=== PATIENT | male | born 2000 | race Caucasian/White ===

== ENCOUNTER 2023-06-16 09:06 | Emergency (ER) | payer OTHER, MEDICAID, SELFPAY ==
[2023-06-16 09:15] VITALS: BP 153/80; PULSE 104; RESP 16; TEMP 36.9; O2SAT 97; BMI 27.3
[2023-06-16] MEDS: SODIUM CHLORIDE 0.9% 1,000 ML 1000 ML IV (09:44)
--- NOTE | 2023-06-16 09:45 | ED_ITS ---
HPI - URI/Sore Throat General Chief Complaint: Upper Respiratory Symptoms Stated Complaint: Tonsil Stones T-14, enlarged Tonsils Time Seen by Provider: 06/16/23 09:38 History of Present Illness HPI Narrative: Patient is a 23-year-old male without past medical history presenting today with ongoing sore throat. He reports that it started around May 26 he was put on 10 days of amoxicillin which he did not tolerate well secondary to diarrhea. He did not finish the whole course but did make it pretty far. He reports that the through he was doing well and then he started having throat pain again. He feels like he is passing tonsil stones. He has been on a Z-Zaid and has 1 more dose. He reports feeling increased pain on the right side. He has been able to swallow but has had significant decreased intake. He is had significant night sweats. No actual fever. Related Data Previous Rx's Medication Instructions Recorded clotrimazole-betamethasone 1 1 taniya topical QID ##15 12/05/16 %-0.05 % topical cream (Lotrisone) mupirocin calcium 2 % topical cream 2 % topical BID ##1 07/10/17 doxycycline hyclate 100 mg tablet 100 mg PO BID #14 tabs 02/17/18 triamcinolone acetonide 0.1 % 1 applictn topical BID #15 grams 07/23/18 topical cream Allergies Allergy/AdvReac Type Severity Reaction Status Date / Time Penicillins AdvReac Verified 06/16/23 09:19 Review of Systems Review of Systems ROS Unobtainable: All systems reviewed & are unremarkable except as noted in HPI and below Patient History Social History Smoking Status: Smoker, status unknown Smoking Status: Smoker, status unknown Exam Initial Vital Signs Initial Vital Signs: Vital Signs Temperature 98.5 F 06/16/23 09:15 Pulse Rate 104 H 06/16/23 09:15 Respiratory Rate 16 06/16/23 09:15 Blood Pressure 153/80 H 06/16/23 09:15 Pulse Oximetry 97 06/16/23 09:15 Oxygen Delivery Method Room Air 06/16/23 09:15 GENERAL: Alert well-appearing 23-year-old male HEENT: Head atraumatic,EOMI, pupils reactive, face symmetric, moist mucous membranes PHARYNX: Significant throat drainage of a white streak no uvula swelling or deviation no significant tonsil enlargement but tonsils are erythematous has a slightly muffled voice airway patent CARDIOVASCULAR: Regular rate and rhythm without murmurs, rubs or gallops. RESPIRATORY: Breath sounds equal bilaterally, no wheezes rales or rhonchi. ABDOMEN: Soft, nontender. Normoactive bowel sounds all 4 quadrants. No guarding or rebound. EXTREMITIES: Normal range of motion, no clubbing or edema. Neurovascularly intact NEUROLOGICAL: Alert and oriented x4. SKIN: Warm, dry, no laceration, no petechiae, no rashes or lesions. Course Orders Ordered: ED Orders 06/16/23 11:25 Blood Culture Stat Discontinued Medications Dexamethasone (Dexamethasone 10 Mg/Ml Vial) 10 mg IV NOW ONE Stop: 06/16/23 09:47 Last Admin: 06/16/23 10:26 Dose: 10 mg Documented By: ELIZABETH Sodium Chloride (Normal Saline 0.9%) 1,000 mls @ 1,000 mls/hr IV BOLUS ONE Stop: 06/16/23 10:32 Last Infusion: 06/16/23 10:46 Dose: 0 mls/hr Documented By: Admin: 06/16/23 09:44 Dose: 1,000 mls/hr Documented By: MICKY Ondansetron HCl (Ondansetron 4 Mg Odt) 4 mg PO NOW PRN PRN Reason: Nausea And Vomiting Ondansetron HCl (Ondansetron 4 Mg/2 Ml Inj) 4 mg IV NOW PRN PRN Reason: Nausea And Vomiting Vital Signs Vital signs: Vital Signs - 8 hr 06/16/23 09:15 Temperature 98.5 F Pulse Rate 104 H Respiratory Rate 16 Blood Pressure 153/80 H Pulse Oximetry 97 Oxygen Delivery Method Room Air MDM - URI/Sore Throat Lab Data 06/16/23 09:45 06/16/23 09:45 Labs: Lab Results 06/16/23 06/16/23 06/16/23 Range/Units 09:45 09:45 09:45 WBC 17.2 H (4.5-11.0) X10^3/uL RBC 4.32 L (4.5-5.9) X10^6/uL Hgb 13.4 L (13.5-17.5) g/dL Hct 38.6 L (41-53) % MCV 89.2 (80-100) fL MCH 31.0 (26-34) PG MCHC 34.8 (30-36) % RDW 13.1 (11.6-14.8) % Plt Count 224 (150-400) X10^3/uL Neut % (Auto) Not Reportable Lymph % (Auto) Not Reportable [place] % (Auto) Not Reportable Eos % (Auto) Not Reportable Baso % (Auto) Not Reportable Lymph # (Auto) Not Reportable [place] # (Auto) Not Reportable Baso # (Auto) Not Reportable Total Counted 100 Seg Neutrophils % 34.0 L (38-70) % Lymphocytes % (Manual) 45.0 (25-45) % Atypical Lymphs % 12.0 H ( - 0) % Monocytes % (Manual) 9.0 (2-11) % Neutrophils # (Manual) 5848 (1733-0892) /uL RBC Morphology Normal morphology Sodium 136 L (137-145) mmol/L Potassium 3.6 (3.4-5.1) mmol/L Chloride 102 (98-107) mmol/L Carbon Dioxide 21 L (22-32) mmol/L BUN 11 (9-20) mg/dL Creatinine 0.93 (0.66-1.25) mg/dL Estimated GFR > 60 (>60) mL/min BUN/Creatinine Ratio 11.8 (6-22) Glucose 105 H (70-100) mg/dL Calcium 8.8 (8.4-10.2) mg/dL Total Bilirubin 1.0 (0.2-1.3) mg/dL AST 73 H (17-59) IU/L ALT 67 H (<50) IU/L Alkaline Phosphatase 125 (38-126) U/L Total Protein 8.0 (6.3-8.2) g/dL Albumin 4.3 (3.5-5.0) g/dL Globulin 3.7 (1.7-4.1) g/dL Albumin/Globulin Ratio 1.2 (1.0-2.8) Lipase 81 (23-300) U/L Monoscreen (Negative) Group A Strep (PCR) Negative (Negative) 06/16/23 Range/Units 09:45 WBC (4.5-11.0) X10^3/uL RBC (4.5-5.9) X10^6/uL Hgb (13.5-17.5) g/dL Hct (41-53) % MCV (80-100) fL MCH (26-34) PG MCHC (30-36) % RDW (11.6-14.8) % Plt Count (150-400) X10^3/uL Neut % (Auto) Lymph % (Auto) [place] % (Auto) Eos % (Auto) Baso % (Auto) Lymph # (Auto) [place] # (Auto) Baso # (Auto) Total Counted Seg Neutrophils % (38-70) % Lymphocytes % (Manual) (25-45) % Atypical Lymphs % ( - 0) % Monocytes % (Manual) (2-11) % Neutrophils # (Manual) ([id number]) /uL RBC Morphology Sodium (137-145) mmol/L Potassium (3.4-5.1) mmol/L Chloride (98-107) mmol/L Carbon Dioxide (22-32) mmol/L BUN (9-20) mg/dL Creatinine (0.66-1.25) mg/dL Estimated GFR (>60) mL/min BUN/Creatinine Ratio (6-22) Glucose (70-100) mg/dL Calcium (8.4-10.2) mg/dL Total Bilirubin (0.2-1.3) mg/dL AST (17-59) IU/L ALT (<50) IU/L Alkaline Phosphatase (38-126) U/L Total Protein (6.3-8.2) g/dL Albumin (3.5-5.0) g/dL Globulin (1.7-4.1) g/dL Albumin/Globulin Ratio (1.0-2.8) Lipase (23-300) U/L Monoscreen Positive H (Negative) Group A Strep (PCR) (Negative) MDM Narrative Medical decision making narrative: Patient is a healthy 23-year-old male who presents with ongoing sore throat despite 2 rounds of antibiotics including amoxicillin and azithromycin. He does have some white exudate and gross drainage in the back of his throat mild muffled voice but no evidence of a peritonsillar abscess or retropharyngeal abscess. He is managing his own secretions. He is strep negative with a positive mono. Mom reports that they actually tested him for mono a month ago and it was negative. He was given amoxicillin he did not develop a rash. He does have leukocytosis of 17 without a left shift electrolytes do not show any clinical significant abnormalities. At this time there is no need for further antibiotics. He has no left upper quadrant pain we discussed no high-risk activities. Supportive care only at this time. He was given dexamethasone and normal saline only. Discharge Plan Departure Patient Disposition: Home Clinical Impression: Mononucleosis Instructions: DI for Mononucleosis-Adult Activity Restrictions/Additional Instructions: *You have been diagnosed with [place] *What to do: Avoid high-risk sports. This can cause seen enlargement. This will take weeks to get better. No need for any further antibiotics. Increase fluids *Continue to take medications as directed Tylenol/Motrin as needed *Follow up with your primary care provider in 2-3 days or call [phone] *Return to ER if you should have inability to tolerate fluids increasing pain or any new, worsening or concerning symptoms Prescriptions: No Action clotrimazole-betamethasone [Lotrisone] 15 GM cream 1 taniya Topical QID Qty: 15 1RF mupirocin calcium 2 % cream 2 % Topical BID Qty: 1 0RF doxycycline hyclate 100 MG tablet 100 mg PO BID Qty: 14 0RF triamcinolone acetonide 0.1 % cream 1 applictn TOP BID Qty: 15 0RF Referrals: Asa Dobbins MD [Primary Care Provider] - Stand Alone Forms: Patient Portal/API
[2023-06-16 10:00] LABS: Add Manual Diff / Slide Review YES; Hematocrit 38.6 % (41-53); Hemoglobin 13.4 g/dL (13.5-17.5); Mean Corpuscular HGB Conc 34.8 % (30-36); Mean Corpuscular Volume 89.2 fL (80-100); Platelet Count 224 X10^3/uL (150-400); Red Blood Cell Count 4.32 X10^6/uL (4.5-5.9); Red Cell Distribution Width 13.1 % (11.6-14.8); White Blood Cell Count 17.2 X10^3/uL (4.5-11.0)
[2023-06-16 10:01] LABS: Strep Grp A by PCR Rapid Negative (Negative)
[2023-06-16 10:07] LABS: Alanine Aminotransferase 67 IU/L (<50); Albumin 4.3 g/dL (3.5-5.0); Albumin Globulin Ratio 1.2 (1.0-2.8); Alkaline Phosphatase 125 U/L (38-126); Aspartate Aminotransferase 73 IU/L (17-59); BUN Creatinine Ratio 11.8 (6-22); Blood Urea Nitrogen 11 mg/dL (9-20); Calcium 8.8 mg/dL (8.4-10.2); Carbon Dioxide 21 mmol/L (22-32); Chloride 102 mmol/L (98-107); Estimated Glomerular Filt Rate > 60 mL/min (>60); Globulin 3.7 g/dL (1.7-4.1); Glucose 105 mg/dL (70-100); HEMOLYSIS < 15 (0-50); Lipase 81 U/L (23-300); Potassium 3.6 mmol/L (3.4-5.1); Sodium 136 mmol/L (137-145)
[2023-06-16 10:09] LABS: Monotest Positive (Negative)
[2023-06-16 10:26] LABS: Neutrophils Absolute Manual 5848 /uL (3000-5900); RBC Morphology Normal Morphology; Total Cells Counted 100
[2023-06-16] MEDS: DEXAMETHASONE 10 MG/ML VIAL IV (10:26)
== END 2023-06-16 11:23 | disposition home or self-care (01) ==
PROVIDERS: Emergency Provider Emergency Medicine; Family Provider Family Medicine; PCP Family Medicine
DX: B27.90 Infectious mononucleosis, unspecified without complication (principal)
CPT/HCPCS: 36415; 80053; 83690; 85007; 85025; 86318; 87040; 87070; 87651; 96361; 96374; 99284; J1100